=== PATIENT | female | born 1985 | race Caucasian/White ===

== ENCOUNTER 2020-07-31 | Outpatient (CLI) | payer OTHER ==
[~2020-07-31] MED LIST: TYLENOL-CODEINE1 TAB PO
== END 2020-07-31 14:26 | disposition home or self-care (01) ==
LOC: PPH VACUNA
DX: Z23 Encounter for immunization (principal)

== ENCOUNTER 2021-03-11 05:00 | Day surgery (SDC) | payer OTHER | END 2021-03-11 14:45 | disposition home or self-care (01) | LOC: CIR.AMB 05:00 | PROVIDERS: ATTEND Orthopaedic Surgery Hand Surgery | DX: M67.431 Ganglion, right wrist (principal); Z20.822 Contact with and (suspected) exposure to COVID-19 ==